=== PATIENT | male | born 1990 | race African-American/Black ===

== ENCOUNTER 2016-07-21 00:47 | Emergency (ER) | payer OTHER ==
[~2016-07-21] VITALS: Ht 172.7 cm; Wt 73.3 kg
[~2016-07-21 00:47] MED LIST: AUGMENTIN875 MG PO; NAPROSYN500 MG PO; NOHOMEMEDS; PEN-VEE K,VEET250 MG PO; VALIUM5 MG PO
[2016-07-21] MEDS ORDERED: ULTRAM50 MG PO (01:12)
[2016-07-21] MEDS ORDERED: PEN-VEE K,VEET500 MG PO (01:12)
[2016-07-21 01:19] VITALS: BP 146/89
== END 2016-07-21 01:27 | disposition home or self-care (01) ==
LOC: EME 00:47
PROC: 3E0T3BZ Introduction of Anesthetic Agent into Peripheral Nerves and Plexi, Percutaneous Approach (ICD-10-PCS; principal; 2016-07-21)
DX: K08.89 Other specified disorders of teeth and supporting structures (principal)
CPT/HCPCS: 99281; 99284

== ENCOUNTER 2017-01-18 13:56 | Observation (INO) | payer OTHER ==
[~2017-01-18] VITALS: Ht 172.7 cm; Wt 74.6 kg
[~2017-01-18 13:56] MED LIST changes: +PEN-VEE K,VEET500 MG PO; +ULTRAM50 MG PO
[2017-01-18 14:11] LABS: HEMATOCRIT 41.5 % (38.0-50.0); MCH 31.4 PG (29.0-34.0); MCV 98.1 FL (86-99); MEAN PLAT.VOLUME 10.3 uM^3 (9.0-12.4); PLATELET COUNT 213 K/uL (156-360); RBC DIS.WIDTH-CV 12.4 % (11.8-14.6); RBC DIS.WIDTH-SD 44.8 % (39-53); RED BLOOD COUNT 4.23 M/uL (4.00-5.50); WHITE BLOOD COUNT 15.8 K/uL (4.1-10.2)
[2017-01-18 14:21] LABS: CHLORIDE 102 mEq/L (99-109); POTASSIUM 5.5 mEq/L (3.7-5.4); SODIUM 141 mEq/L (136-147)
[2017-01-18 14:22] LABS: GLUCOSE 111 mg/dL (70-99)
[2017-01-18 14:24] LABS: ANION GAP 14 MEQ/L (2-14)
[2017-01-18 14:25] LABS: SERUM ETHYL ALCOHOL < 10 mg/dL
[2017-01-18 14:26] LABS: GFR ESTIMATE (CALCULATED) > 59 mL/min/
[2017-01-18 14:27] LABS: UREA NITROGEN (BUN) 16 mg/dL (9-23)
[2017-01-18 17:02] LABS: ADD MEDTOX COMMENT Y; AMPHETAMINE NEGATIVE (500 ng/mL); BARBITURATES NEGATIVE (200 ng/mL); BENZODIAZEPINES NEGATIVE (150 ng/mL); COCAINE PRESUMPTIVE POSITIVE (150 ng/mL); INTERNAL CONTROLS VALID? YES; METHADONE NEGATIVE (200 ng/mL); METHAMPHETAMINE NEGATIVE (500 ng/mL); OPIATES (MORPHINE) PRESUMPTIVE POSITIVE (100 ng/mL); OXYCODONE NEGATIVE (100 ng/mL); PHENCYCLIDINE NEGATIVE (25 ng/mL); PROPOXYPHENE NEGATIVE (300 ng/mL); THC CANNABINOIDS NEGATIVE (50 ng/mL); TRICYCLIC ANTIDEPRESSANTS NEGATIVE (300 ng/mL)
[2017-01-18 20:49] LABS: CARBON DIOXIDE (BICARBONATE) 31.5 MEQ/L (20-31)
[2017-01-18 20:52] LABS: EOSINOPHIL (%) 0.6 % (0-5); EOSINOPHIL COUNT 0.1 K/uL (0-0.3); HEMATOCRIT 38.6 % (38.0-50.0); IMMATURE GRANULOCYTE (%) 0.3 % (0.0-0.7); INSTRUMENT ABS NEUTROPHIL CT 10.5 K/uL; MCH 30.9 PG (29.0-34.0); MCHC 32.9 G/DL (30.0-36.0); MEAN PLAT.VOLUME 10.3 uM^3 (9.0-12.4); MONOCYTE (%) 6.6 % (3-12); MONOCYTE COUNT 0.8 K/uL (0-0.8); NEUTROPHIL (%) 84.4 % (45-76); NEUTROPHIL COUNT 10.5 K/uL (1.8-6.4); PLATELET COUNT 219 K/uL (156-360); RBC DIS.WIDTH-CV 12.1 % (11.8-14.6); RBC DIS.WIDTH-SD 42.1 % (39-53); RED BLOOD COUNT 4.11 M/uL (4.00-5.50); WHITE BLOOD COUNT 12.5 K/uL (4.1-10.2)
[2017-01-18 20:53] LABS: MCV 93.9 FL (86-99)
[2017-01-18 21:01] LABS: PROTHROMBIN TIME 11.3 SEC (10.2-12.9); PTT 26.8 SEC (25-37)
[2017-01-18 21:07] LABS: CHLORIDE 104 mEq/L (99-109); POTASSIUM 4.6 mEq/L (3.7-5.4); SODIUM 139 mEq/L (136-147)
[2017-01-18 21:09] LABS: GLUCOSE 88 mg/dL (70-99)
[2017-01-18 21:10] LABS: ANION GAP 9 MEQ/L (2-14)
[2017-01-18 21:11] LABS: TOTAL BILIRUBIN 0.4 mg/dL (0.0-1.0)
[2017-01-18 21:12] LABS: ALKALINE PHOSPHATASE 73 IU/L (3-129)
[2017-01-18 21:13] LABS: GFR ESTIMATE (CALCULATED) > 59 mL/min/
[2017-01-18 21:14] LABS: TROP-I INTERPRETATION POSITIVE; UREA NITROGEN (BUN) 16 mg/dL (9-23)
[2017-01-18 21:25] LABS: TROPONIN-I 0.93 ng/mL (0.0-0.30)
[2017-01-18 22:32] VITALS: BP 115/61
[2017-01-19 05:24] LABS: HDL CHOLESTEROL 74 MG/DL (Desirable>=40); LDL CHOLESTEROL 93 mg/dL (Desirable<100); NON-HDL CHOLESTEROL 99 mg/dL (Desirable<160); TOTAL CHOLESTEROL 173 mg/dL (Desirable<200); TRIGLYCERIDES 32 MG/DL (Normal: <150)
[2017-01-19 05:51] LABS: CREATINE KINASE 583 IU/L (1-294)
[2017-01-19 05:58] VITALS: BP 110/62
[2017-01-19 06:14] LABS: TROP-I INTERPRETATION INDETERMINATE; TROPONIN-I 0.49 ng/mL (0.0-0.30)
[2017-01-19 07:03] LABS: INTER. NORMALIZED RATIO 1.1; PROTHROMBIN TIME 12.1 SEC (10.2-12.9)
[2017-01-19 08:11] VITALS: BP 117/56
[2017-01-19 09:26] LABS: Estimated Average Glucose 120 mg/dL (70-123); HEMOGLOBIN A1c (GLYCOHEMOGLOB) 5.8 % HGB (Below 5.7)
[2017-01-19 10:54] LABS: MCH 31.3 PG (29.0-34.0); MCHC 33.1 G/DL (30.0-36.0); MCV 94.7 FL (86-99); MEAN PLAT.VOLUME 10.4 uM^3 (9.0-12.4); PLATELET COUNT 201 K/uL (156-360); RBC DIS.WIDTH-CV 12.3 % (11.8-14.6); RBC DIS.WIDTH-SD 43.2 % (39-53); WHITE BLOOD COUNT 8.6 K/uL (4.1-10.2)
[2017-01-19 11:16] LABS: ALKALINE PHOSPHATASE 58 IU/L (3-129); ANION GAP 5 MEQ/L (2-14); CHLORIDE 106 MEQ/L (99-109); GFR ESTIMATE (CALCULATED) > 59 mL/min/; GLUCOSE 92 mg/dL (70-99); POTASSIUM 4.4 MEQ/L (3.7-5.4); SAMPLE HEMOLYSIS CHECK 0; SAMPLE ICTERIC CHECK 0; SAMPLE LIPEMIA CHECK 0; SODIUM 141 MEQ/L (136-147); TOTAL BILIRUBIN 0.5 MG/DL (0.0-1.0); UREA NITROGEN (BUN) 15 mg/dL (9-23)
[2017-01-19 11:20] LABS: TROP-I INTERPRETATION NEGATIVE; TROPONIN-I 0.27 ng/mL (0.0-0.30)
[2017-01-19 11:55] VITALS: BP 105/67
[2017-01-19 15:11] VITALS: BP 133/68
[2017-01-19 19:28] VITALS: BP 121/62
[2017-01-20 00:15] VITALS: BP 124/70
[2017-01-20 04:11] VITALS: BP 113/73
[2017-01-20 04:19] LABS: HEMATOCRIT 37.6 % (38.0-50.0); MCH 30.8 PG (29.0-34.0); MCHC 32.7 G/DL (30.0-36.0); MEAN PLAT.VOLUME 10.7 uM^3 (9.0-12.4); PLATELET COUNT 210 K/uL (156-360); RBC DIS.WIDTH-SD 41.8 % (39-53); WHITE BLOOD COUNT 6.6 K/uL (4.1-10.2)
[2017-01-20 04:31] LABS: CHLORIDE 107 mEq/L (99-109); POTASSIUM 4.6 mEq/L (3.7-5.4); SODIUM 143 mEq/L (136-147)
[2017-01-20 04:33] LABS: GLUCOSE 89 mg/dL (70-99)
[2017-01-20 04:34] LABS: ANION GAP 7 MEQ/L (2-14)
[2017-01-20 04:37] LABS: GFR ESTIMATE (CALCULATED) > 59 mL/min/
[2017-01-20 04:38] LABS: UREA NITROGEN (BUN) 18 mg/dL (9-23)
[2017-01-20 08:20] VITALS: BP 114/70
[2017-01-20 11:05] LABS: HBSG INDEX 0.15
[2017-01-20 11:07] LABS: ANTI-HEPATITIS A VIRUS (IGM) Nonreactive; ANTI-HEPATITIS B CORE (IGM) Nonreactive; HAV INDEX 0.13; HBC IgM INDEX 0.05
[2017-01-20 12:09] VITALS: BP 112/64
[2017-01-20] MEDS ORDERED: NICOTINE PATCH1 EAC2 TD (12:41)
[2017-01-20] MEDS ORDERED: AUGMENTIN875 MG PO (12:41)
[2017-01-20 13:52] LABS: CREATINE KINASE 410 IU/L (1-294)
== END 2017-01-20 15:15 | disposition home or self-care (01) ==
LOC: EME 13:56 → EDOF 20:18 → ENRESERV 20:20 → 4EAST 22:01
PROVIDERS: Emergency Medicine; Hospitalist; Physician Assistant Medical
DX: T40.2X1A Poisoning by other opioids, accidental (unintentional), initial encounter (principal); T40.5X1A Poisoning by cocaine, accidental (unintentional), initial encounter; I21.4 Non-ST elevation (NSTEMI) myocardial infarction; E87.5 Hyperkalemia; N17.9 Acute kidney failure, unspecified; R79.89 Other specified abnormal findings of blood chemistry; J69.0 Pneumonitis due to inhalation of food and vomit; D72.829 Elevated white blood cell count, unspecified; F20.9 Schizophrenia, unspecified; F31.9 Bipolar disorder, unspecified; Z91.14 Patient's other noncompliance with medication regimen; F17.210 Nicotine dependence, cigarettes, uncomplicated; Z79.82 Long term (current) use of aspirin
CPT/HCPCS: 71010; 71250; 80048; 80053; 80061; 80074; 82550; 82803; 83036; 83605; 84484; 84999; 85025; 85027; 85610; 85730; 93005; 94799; G0378; G0480; J0295; J2310; J7050; J7120; S0028

== ENCOUNTER 2017-08-06 15:24 | Emergency (ER) | payer OTHER ==
[~2017-08-06] VITALS: Ht 172.7 cm; Wt 77.5 kg
[~2017-08-06 15:24] MED LIST changes: +NICOTINE PATCH1 EAC2 TD
[2017-08-06] MEDS ORDERED: NAPROSYN500 MG PO (18:49)
[2017-08-06] MEDS ORDERED: LORTAB 5-325 M1 EACH PO (18:49)
[2017-08-06] MEDS ORDERED: FLEXERIL10 MG PO (18:49)
[2017-08-06 19:12] VITALS: BP 129/74
== END 2017-08-06 19:12 | disposition home or self-care (01) ==
LOC: EME 15:24
DX: S02.82XA Fracture of other specified skull and facial bones, left side, initial encounter for closed fracture (principal); S16.1XXA Strain of muscle, fascia and tendon at neck level, initial encounter; H02.846 Edema of left eye, unspecified eyelid; Y04.8XXA Assault by other bodily force, initial encounter; Y93.01 Activity, walking, marching and hiking; F31.9 Bipolar disorder, unspecified; F32.9 Major depressive disorder, single episode, unspecified; F20.9 Schizophrenia, unspecified; F17.200 Nicotine dependence, unspecified, uncomplicated; Z71.6 Tobacco abuse counseling
CPT/HCPCS: 70480; 71046; 99281; 99284